=== PATIENT | female | born 1940 | race Caucasian/White ===

== ENCOUNTER 2019-06-25 07:48 | Outpatient (CLI) | payer MEDICARE, SELFPAY ==
[2019-06-25 09:24] LABS: Basophils Percent Auto 0.6 % (0.2-1.2); Eosinophils Absolute Auto 0.1 K/mm3 (0-0.3); Eosinophils Percent Auto 1.2 % (0-4.4); Hematocrit 40.5 % (37.0-47.0); Hemoglobin 13.5 g/dL (12.0-15.0); Immature Granulocyte Absolute 0.04 K/mm3 (0.00-0.031); Immature Granulocyte Percent A 0.6 % (0-0.5); Lymphocytes Absolute Auto 1.92 K/mm3 (0.9-3.2); Lymphocytes Percent Auto 26.6 % (18.3-44.2); Mean Corpuscular HGB Conc 33.3 g/dl (32-36); Mean Corpuscular Hemoglobin 31.4 pg (26-34); Mean Corpuscular Volume 94.2 fl (80-100); Mean Platelet Volume 10.1 fl (7.4-10.4); Monocytes Absolute Auto 0.6 K/mm3 (0.1-0.6); Monocytes Percent Auto 8.3 % (2.6-8.5); Neutrophils Absolute Auto 4.5 K/mm3 (1.3-6.7); Neutrophils Percent Auto 62.7 % (45.5-73.1); Platelet Count Result 304 k/mm3 (150-375); Red Cell Distribution Width 11.8 % (11.5-14.5); White Blood Count 7.2 K/mm3 (4.5-10.0)
[2019-06-25 09:36] LABS: Albumin Level 4.6 g/dL (3.5-5.1)
[2019-06-25 09:37] LABS: Hemoglobin A1C 6.5 % (<5.7); Urine Cotinine NEGATIVE
[2019-06-25 09:38] LABS: Blood Urea Nitrogen 14 mg/dL (7-17); Calcium 9.5 mg/dL (8.4-10.2); Carbon Dioxide 28 mmol/L (22-30); Chloride 88 mmol/L (98-107); Estimated Glomerular Filt Rate > 60; Glucose 125 mg/dL (65-105); Potassium 4.4 mmol/L (3.4-5.0); Sodium 131 mmol/L (137-145)
== END 2019-06-25 07:49 | disposition home or self-care (01) ==
LOC: ANHSURGERY 07:55
PROVIDERS: Anesthesiology; Visit Provider Orthopaedic Surgery
DX: M16.9 Osteoarthritis of hip, unspecified (principal); I10 Essential (primary) hypertension
CPT/HCPCS: 36415; 80048; 80307; 82040; 83036; 85025; 87081

== ENCOUNTER 2019-07-06 00:14 | Day surgery (SDC) | payer MEDICARE, SELFPAY ==
[2019-06-25 08:30] VITALS: BP 152/70; PULSE 60; RESP 20; TEMP 37.1; O2SAT 99; BMI 26.6
[2019-07-06] VITALS (18 sets, daily range): BP systolic 102–152; BP diastolic 35–65; PULSE 65–82; RESP 10–20; TEMP 36.1–36.7; O2SAT 92–99
--- NOTE | ~2019-07-06 | XR_ITS ---
EXAMINATION: XR hip LT min 2V DATE: 07/06/2019 11:33 INDICATION: Left total hip arthroplasty TECHNIQUE: 2 views left hip FINDINGS: There is a left total hip arthroplasty in expected position. Subcutaneous gas with soft ti ssue swelling are consistent with recent surgery. IMPRESSION: 1. Recent left total hip arthroplasty. Reviewed, dictated and finalized at location A.
--- NOTE | ~2019-07-06 | XR_ITS ---
EXAMINATION: XR surgery orthopedic EXAM DATE: 07/06/2019 13:50 INDICATION: Left hip replacement. TECHNIQUE: Fluoroscopy used during XR surgery orthopedic performed by Dr. Juan Kaur MD. The DAP for this procedure was 0. 11 mGym2. FINDINGS: Image demonstrates advanced left hip osteoarthritis, and then another frontal image with f emoral broach, and acetabular component in expected position. Correlate with procedure note. IMPRESSION: Fluoroscopy used during left hip replacement.. Reviewed, dictated and finalized at location A.
--- NOTE | 2019-07-06 06:53 | WPDANESEPPF ---
Anes - Initial Pre Proc Eval Procedure: Operation Date: 07/06/19 07:30 Proposed Procedures p Left Total Hip Arthroplasty, Anterior Approach - Juan Kaur MD Date/Time: 07/06/19 06:53 Surgeon: Juan Kaur MD Pre Op Diagnosis: OA Left Hip Patient Data Age: 78 Gender: F Height: 5 ft 3 in Weight: 68.1 kg Last Vital Signs Temp 37.1 C 06/25/19 08:30 Pulse 60 06/25/19 08:30 Resp 20 06/25/19 08:30 BP 152/70 H 06/25/19 08:30 Pulse Ox 99 06/25/19 08:30 Allergies Allergy/AdvReac Type Severity Reaction Status Date / Time No Known Allergies Allergy Verified 06/25/19 09:34 Home Medications Medication Instructions Recorded Confirmed Type escitalopram oxalate 20 mg tablet 10 mg PO HS 04/14/19 06/25/19 History lisinopril 40 mg tablet 40 mg PO DAILY 04/14/19 06/25/19 History amlodipine 10 mg tablet 10 mg PO DAILY #30 tablet 05/21/19 06/25/19 Rx hydrochlorothiazide 25 mg tablet 25 mg PO DAILY #30 tablet 05/21/19 06/25/19 Rx hydralazine 50 mg tablet 50 mg PO BID #30 tablet 06/01/19 06/25/19 Rx acetaminophen [Tylenol Arthritis 650 mg PO Q12H 06/25/19 06/25/19 History Pain] atenolol 50 mg PO HS 06/25/19 06/25/19 History loratadine [Claritin] 10 mg PO DAILY 06/25/19 06/25/19 History rivaroxaban 10 mg tablet 10 mg PO DAILY #13 tablet MDD 1 06/26/19 Rx tab = 10mg Patient hx anesthesia problems: none Family hx anesthesia problems: none PMFSH Past Medical History Medical History Anxiety Arthritis Bladder tumor Cancer skin HLD (hyperlipidemia) Hypertension 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 JARAD (stress urinary incontinence, female) Urinary problem Surgical History Surgical History History of bilateral tubal ligation History of bladder surgery History of gynecologic surgery History of tonsillectomy and adenoidectomy Family History Family History Mother Family history of bipolar disorder Father Asthma Family history of alcoholism Social History Social History Smoking status: Never smoker Gender identity (if verbalized by the patient): Female 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 Questions were solicited and answers provided to the satisfaction of the patient/family/POA.
[2019-07-06] MEDS: LACTATED RINGERS 1,000 ML 30 ML IV CONT ×2 (07:05→11:22)
--- NOTE | 2019-07-06 07:06 | WPDHPUPDATE1 ---
History and Physical Update Update Date/Time: 07/06/19 07:06 History and Physical has been reviewed, including an updated exam of the patient. There are NO changes in the patient's condition. Risks, benefits, and alternatives have been discussed and questions answered. Patient agrees to proceed with procedure.
[2019-07-06] MEDS: TRANEXAMIC ACID 1,000MG/ISO100 1,000 MG/100 ML BAG 200 MG IVPB (07:08)
[2019-07-06] MEDS: ceFAZolin 2 GM/D5W 50 ML 2 GM/50 ML BAG IVPB (07:34)
[2019-07-06] MEDS: SODIUM CHLORIDE 0.9% IV 50 ML, TRANEXAMIC ACID 1,000 MG TOPICAL (08:25)
--- NOTE | 2019-07-06 10:42 | SUR.OPER ---
EBL: 250ML CELL SAVER: 150ML OF PATIENTS OWN BLOOD GIVEN BACK URINE: 250ML CLEAR AND YELLOW
[2019-07-06] MEDS: ceFAZolin SODIUM 1 GM VIAL IV PUSH (10:48)
--- NOTE | 2019-07-06 11:20 | P.OP_ITS ---
Procedure Note - Detailed Date of procedure: 07/06/19 Pre-op diagnosis: OA Left Hip Post-op diagnosis: same Procedure performed: Left total hip replacement through an anterior approach Description of procedure: The patient was identified, proper side identified, and then taken to the operating room. After general anesthesia induction and intubation, she was then transferred over to the [place] table positioning supine in the usual manner for an anterior hip procedure. Positioning was assessed fluoroscopically after which the left hip and thigh was prepped and draped in the usual sterile fashion. 10 cc of the arthroplasty solution was injected into the subcutaneous tissue over the TFL muscle belly. Longitudinal incision was made over the muscle belly. Subcutaneous tissue was sharply dissected down to the TFL fascia which was incised in line with the fibers the TFL. The TFL was retracted laterally and the rectus femoris medially. The rectus fascia was divided. The branches of the anterior femoral circumflex artery were identified and cauterized allowing for access to the hip capsule. Pericapsular fatty tissue was removed. The capsule was divided in an inverted T-fashion. The neck cut was made one fingerbreadth above the level of the lesser trochanter. Head fragment was removed and the acetabulum cleared of debris. Acetabulum was sequentially reamed under fluoroscopic visualization up to 49 mm. A 50 G7 acetabular cup was inserted under fluoroscopic visualization in approximately 40? of abduction and 15? of anteversion following the patient's anatomy. It was further secured with a single screw and then the liner for the 36 mm head was placed. The femur was then delivered up into the wound with the appropriate releases. The proximal femur was prepared for the size 12 echo reduced profile stem and a trial reduction was undertaken. Overall alignment was assessed fluoroscopically in the AP and lateral views noting it to be satisfactory. Trial components were removed. The wound was irrigated with pulsatile lavage. The real stem was then seated. This construct with a minus six 36 mm head gave excellent episcopalian of leg lengths and stability so the real head was attached to the neck of the femoral component after it had been cleaned and dried. Hip was again reduced and stability assessed, and it was noted to be stable. After final lavage of the wound, the periarticular tissues were injected with an additional 50 cc of the arthroplasty solution. 1 g of tranexamic acid was left in the wound. The capsule was reapproximated with #2 Vicryl suture, the TFL fascia with 0 looped PDS suture, the subcu with two of strata fix in the deeper layers and two of strata fix subcuticular stitch. Tissue adhesive was used for the skin. Sterile dressing was applied. He tolerated the procedure well. He was transferred back to a bed and taken to recovery area in stable condition. There were no known intraoperative complications. Estimated blood loss was 250 cc and 125 cc Cell Saver returned. She received perioperative antibiotics. Anesthesia: GETA Surgeon: Juan Kaur MD Estimated blood loss (mL): 250 (125 mL returned via Cell Saver) Drains: No Packing: No Pathology: none sent Complications: No immediate complications Condition: stable Disposition: PACU
--- NOTE | 2019-07-06 12:15 | SUR.PHASEI ---
1210 sbar faxed floor notified, family updated and room # given
[2019-07-06] MEDS: ONDANSETRON INJ 4 MG/2 ML VIAL IV PUSH ×2 (13:36→14:08)
[2019-07-06 14:08] LABS: Hematocrit 35.6 % (37.0-47.0); Hemoglobin 11.7 g/dL (12.0-15.0)
[2019-07-06] MEDS: SODIUM CHLORIDE 0.9% IV 1,000 ML 125 ML IV CONT ×2 (14:08→23:35)
[2019-07-06] MEDS: DOCUSATE SODIUM 100 MG CAPSULE PO (16:39)
[2019-07-06] MEDS: ESCITALOPRAM OXALATE 10 MG TABLET PO (20:19)
[2019-07-06] MEDS: atenoloL 50 MG TABLET PO (22:11)
--- NOTE | 2019-07-06 22:45 | WPDCN ---
Assessment and Plan Assessment and plan (1) Osteoarthritis of left hip: Qualifiers: Osteoarthritis type: primary Qualified Code(s): M16.12 - Unilateral primary osteoarthritis, left hip Code(s): M16.12 - Unilateral primary osteoarthritis, left hip Status: Acute Assessment and Plan: Wound care and pain control will be deferred to Dr. Kaur. DVT prophylaxis also deferred. Check baseline labs in a.m. (2) Hypertension: Code(s): I10 - Essential (primary) hypertension Status: Acute Assessment and Plan: Blood pressures were reviewed and they have been a bit soft postoperatively. Will hold antihypertensives this evening and continue to monitor closely. (3) Type 2 diabetes mellitus: Code(s): E11.9 - Type 2 diabetes mellitus without complications Status: Acute Assessment and Plan: Hemoglobin A1c was 6.6% October 27, 2018, which is diagnostic of diabetes, diet controlled. Patient has been repeatedly told by her primary care provider that she does not have diabetes, however. Patient is not on any medication for this, and is simply being monitored with dietary changes. Supervising physician for this medical consultation is Dr. Jones Clark. HPI Data of Consult Date/Time: 07/06/19 23:31 Requesting Physician: Juan Kaur MD Primary Care Provider: Anam Bates MD [facility] Consult Narrative Narrative: Piedad Nobles is a 78 year old female whom the hospitalist service has been consulted for postoperative medical management. Her medical history significant for type 2 diabetes mellitus, hypertension, history of low-grade bladder cancer, and osteoarthritis. She has had longstanding pain in her left hip, not amenable to conservative outpatient treatment, and thus she elected for replacement today. Her surgery was performed in 0 general anesthesia with no immediate complications documented. Estimated blood loss was 250 milliliters and 125 milliliters returned via Cell Saver. Postoperatively she has suffered from nausea and did have some vomiting earlier today. Her blood pressures were running a bit soft this evening, and thus she did not get up to the chair or walk. At the time my evaluation, she complains of mild discomfort near the incision site of the left hip. She denies paresthesias, skin color, and temperature changes distal to the surgical site. No fever, chills, sweats, chest pain, or shortness of breath. No lightheadedness or dizziness. Review of Systems Review of Systems: Narrative: Twelve systems were reviewed with pertinent positives and negatives as per HPI. She denies recent cold and flu symptoms. No fever, chills, or sweats. No history of cardiac disease. She had a negative pharmacologic stress test in October 2018. Patient denies ever being told that she had diabetes, in fact has been told she does not have diabetes despite having hemoglobin A1cs of 6.5 and 6.6%. This is diet controlled, and has remained stable over the year. She denies blurry vision, polydipsia, and polyuria. No neuropathy symptoms. No history of venous thromboembolism. Except as documented, all other systems were reviewed and are negative. [facility] Past Medical History Medical History (Updated 07/06/19 @ 23:34 by Florence Arguello PA-C) Anxiety Arthritis Bladder cancer Status post TURBT, reportedly low-grade bladder cancer. History of skin cancer History of stress test Pharmacologic stress test in October [address] segment abnormalities with severe systemic hypertension, ejection fraction > 70%, and normal MPI. 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 Surgical History Surgical History (Updated 07/06/19 @ 23:34 by Florence Arguello PA-C) Hist
[2019-07-07] MEDS: ONDANSETRON INJ 4 MG/2 ML VIAL IV PUSH ×2 (00:40→18:16)
[2019-07-07 02:00] VITALS: BP 132/44; PULSE 70; RESP 16; TEMP 36.9; O2SAT 97
[2019-07-07 06:00] VITALS: BP 128/50; PULSE 75; RESP 16; TEMP 37.2; O2SAT 97
[2019-07-07 06:30] LABS: Basophils Percent Auto 0.2 % (0.2-1.2); Hematocrit 28.4 % (37.0-47.0); Hemoglobin 9.3 g/dL (12.0-15.0); Immature Granulocyte Absolute 0.09 K/mm3 (0.00-0.031); Immature Granulocyte Percent A 0.5 % (0-0.5); Lymphocytes Percent Auto 6.5 % (18.3-44.2); Mean Corpuscular HGB Conc 32.7 g/dl (32-36); Mean Corpuscular Hemoglobin 31.5 pg (26-34); Mean Corpuscular Volume 96.3 fl (80-100); Mean Platelet Volume 10.6 fl (7.4-10.4); Monocytes Absolute Auto 1.3 K/mm3 (0.1-0.6); Monocytes Percent Auto 7.7 % (2.6-8.5); Neutrophils Absolute Auto 14.4 K/mm3 (1.3-6.7); Neutrophils Percent Auto 85.1 % (45.5-73.1); Platelet Count Result 196 k/mm3 (150-375); Red Blood Count 2.95 M/mm3 (4.2-5.4); White Blood Count 16.9 K/mm3 (4.5-10.0)
[2019-07-07 06:39] LABS: Blood Urea Nitrogen 18 mg/dL (7-17); Calcium 8.3 mg/dL (8.4-10.2); Carbon Dioxide 25 mmol/L (22-30); Chloride 94 mmol/L (98-107); Estimated CRCL calculation 66 ml/min; Estimated Glomerular Filt Rate > 60; Glucose 134 mg/dL (65-105); Potassium 4.7 mmol/L (3.4-5.0); Sodium 126 mmol/L (137-145)
--- NOTE | 2019-07-07 07:23 | PM.PNORT ---
Progress Note: A&P Assessment and Plan (1) Osteoarthritis of left hip: Qualifiers: Osteoarthritis type: primary Qualified Code(s): M16.12 - Unilateral primary osteoarthritis, left hip Code(s): M16.12 - Unilateral primary osteoarthritis, left hip Status: Acute Assessment and Plan: 78-year-old female postop day one left total hip replacement. She is doing well enough that she would like to go home. She has had a little bit of nausea today but feels it is manageable. I will send a Zofran prescription home with her along with her other prescriptions. Subjective Subjective Date/Time Seen: 07/07/19 07:23 Post Op day: 1 (Left total hip replacement through an anterior approach) Principal diagnosis: Severe osteoarthritis left hip Interval history: 78-year-old female postop day one left total hip replacement on to an anterior approach. Uneventful overnight. He has a little bit of soreness in her left groin that is manageable with the pain medication. Is wanting to go home today. Currently having some trouble voiding. Review of Systems Constitutional: Constitutional: Denies chills and Denies fever(s) Eyes: Eyes: Reports no additional eye complaints ENT: Reports system reviewed and no additional complaints, except as documented Cardiovascular: Cardiovascular: Denies chest pain and Denies dyspnea on exertion Respiratory: Respiratory: Reports no additional respiratory complaints and Denies dyspnea on exertion Gastrointestinal: Gastrointestinal: Denies abdominal pain and Denies bloating Exam Const: General: cooperative, no acute distress and alert Nutritional Appearance: other Orientation/consciousness: patient oriented x3 Limitations: no limitations HENMT: Head: normal to inspection Ears: hearing grossly normal bilaterally Face and sinus: face symmetric Mouth: Yes moist mucous membranes Teeth and gingiva: fair dentition Eyes: Alignment and Position: alignment normal and position normal Sclera: sclerae normal Neck: Neck: normal visual inspection and nontender Chest: Chest palpation & inspection: normal inspection of the chest Resp: Effort & Inspection: normal respiratory effort and able to speak in complete sentences GI: Inspection: normal to inspection (Nontender, nondistended) Skin: General skin exam: normal color Rashes: no rashes Neuro: General: patient oriented x3 Cognition (Neuro): normal cognition Speech: normal speech Sensory Exam: normal sensation Extrem: General: normal to inspection and other Other: Exam of the left hip wound shows that it is dry. Some swelling noted about the hip very little bruising. Motor function grossly intact left lower extremity. Exam limited secondary to thigh discomfort. Grossly, neurovascular status intact to left lower extremity. Psych: Appearance: grossly normal Mental Status: mental status grossly normal Objective Data Vital Signs Vital Signs: Vital Signs - 24 hr 07/06/19 07:24 07/06/19 11:25 07/06/19 11:40 Temperature 97.9 F 97.9 F Pulse Rate 65 82 74 Respiratory Rate 20 20 10 L Blood Pressure 152/54 H 111/38 L 114/65 Pulse Oximetry 99 93 98 07/06/19 11:55 07/06/19 12:10 07/06/19 12:25 Temperature Pulse Rate 71 70 67 Respiratory Rate 12 18 12 Blood Pressure 122/51 L 116/51 L 113/43 L Pulse Oximetry 95 92 94 07/06/19 12:30 07/06/19 12:45 07/06/19 13:00 Temperature Pulse Rate 68 70 72 Respiratory Rate 12 11 L 14 Blood Pressure 110/46 L 107/43 L 103/45 L Pulse Oximetry 93 93 93 07/06/19 13:15 07/06/19 13:30 07/06/19 13:42 Temperature 97.4 F L Pulse Rate 73 71 74 Respiratory Rate 12 12 16 Blood Pressure 102/59 L 119/47 L 118/40 L Pulse Oximetry 93 93 94 07/06/19 13:57 07/06/19 14:27 07/06/19 15:38 Temperature 97.4 F L 97.6 F 98.0 F Pulse Rate 77 78 82 Respiratory Rate 18 16 18 Blood Pressure 116/40 L 107/35 L 110/50 L Pulse Oximetry 95 94 96 07/06/19 21:50 07/06/19 22:00 07/06/19 22
--- NOTE | 2019-07-07 08:19 | WPDANESPN ---
Anes - Prog Note Post-Op Date/Time: 07/07/19 08:19 Cardiovascular status: normal Respiratory status: normal Airway patency: baseline Mental status: baseline Post-Op hydration status: normal Vital Signs: Last Vital Signs Temp 37.2 C 07/07/19 06:00 Pulse 75 07/07/19 06:00 Resp 16 07/07/19 06:00 BP 128/50 L 07/07/19 06:00 Pulse Ox 97 07/07/19 06:00 I/O: Intake & Output 07/06/19 07/07/19 07/07/19 23:59 07:59 15:59 Intake Total 1290 1667 Output Total 250 600 Balance 1040 1067 Laboratory Tests 07/07/19 05:45 07/07/19 05:44 07/06/19 07/07/19 07/07/19 13:57 05:44 05:45 WBC 16.9 H RBC 2.95 L Hgb 11.7 L 9.3 L Hct 35.6 L 28.4 L MCV 96.3 MCH 31.5 MCHC 32.7 RDW 12.0 Plt Count 196 MPV 10.6 H Immature Gran % (Auto) 0.5 Neut % (Auto) 85.1 H Lymph % (Auto) 6.5 L [place] % (Auto) 7.7 Eos % (Auto) 0.0 Baso % (Auto) 0.2 Lymph # (Auto) 1.10 [place] # (Auto) 1.3 H Eos # (Auto) 0.0 Baso # (Auto) 0.0 Abs Immat Gran (auto) 0.09 H Absolute Neuts (auto) 14.4 H Absolute Nucleated RBC 0.0 Nucleated RBC % 0.0 Sodium 126 L Potassium 4.7 Chloride 94 L Carbon Dioxide 25 BUN 18 H Creatinine 0.50 L Estim Creat Clear Calc 66 Estimated GFR > 60 Glucose 134 H Calcium 8.3 L Post-procedural complaints: none Patient Feedback: Patient satisfied with anesthetic care.
[2019-07-07 10:19] VITALS: BP 131/45; PULSE 78; RESP 18; O2SAT 96
[2019-07-07 10:21] VITALS: BP 142/55
[2019-07-07] MEDS: DOCUSATE SODIUM 100 MG CAPSULE PO ×2 (10:30→18:03)
[2019-07-07] MEDS: AMLODIPINE BESYLATE 5 MG TABLET 10 MG PO (10:30)
[2019-07-07] MEDS: hydrALAZINE HCL 50 MG TABLET PO ×2 (10:31→18:04)
[2019-07-07] MEDS: lisinopriL 20 MG TABLET 40 MG PO (10:31)
[2019-07-07] MEDS: RIVAROXABAN 10 MG TABLET PO (10:32)
[2019-07-07] MEDS: LORATADINE 10 MG TABLET PO (10:32)
--- NOTE | 2019-07-07 12:10 | PC.NURSE ---
Patient refused gel packs stating the packs cause more pain with them laying on the incision.
--- NOTE | 2019-07-07 13:05 | PM.IMPN ---
Progress Note: A&P Assessment and Plan (1) Osteoarthritis of left hip: Qualifiers: Osteoarthritis type: primary Qualified Code(s): M16.12 - Unilateral primary osteoarthritis, left hip Code(s): M16.12 - Unilateral primary osteoarthritis, left hip Status: Acute Assessment and Plan: Patient improving well today; likely home today Wound care, DVT ppx, PT/OT, and pain control will be deferred to Dr. Kaur Patient okay for discharge from Hospitalist standpoint (2) Hypertension: Code(s): I10 - Essential (primary) hypertension Status: Acute Assessment and Plan: BP 140s today; Stable Will continue home BP medications at discharge Instruct to check BP daily at home; call [employer] if BP too soft (3) Type 2 diabetes mellitus: Code(s): E11.9 - Type 2 diabetes mellitus without complications Status: Acute Assessment and Plan: Hemoglobin A1c was 6.6% October 27, 2018, which is diagnostic of diabetes, diet controlled. Patient has been repeatedly told by her primary care provider that she does not have diabetes, however. Patient is not on any medication for this, and is simply being monitored with dietary changes. Follow up with PCP for further management Additional Plan Thank you for allowing the Hospitalist team to care for this patient during their stay. Please call with any questions Subjective Date/time seen: 07/07/19 13:05 This is a Hospitalist Consult Progress Note Interval history: Patient is a 78 yo F with history of type 2 diabetes mellitus, hypertension, history of low-grade bladder cancer, and osteoarthritis who is here for left hip replacement per Dr. Kaur POD 1; Hospitalist service has been consulted for medical management of comorbid conditions. Patient states she is doing okay today. She has been working well with PT/OT. Pain is reasonable today. She is wishing to return home. Denies f/c/ns, headaches, dizziness/lightheadedness particularly when standing, changes in v/h, cp/palpitations, n/v/d/c, abd pain, dysuria, hematuria, cloudy urine, calf pain/swelling, s/sx of stroke. Review of Systems Review of Systems: All systems reviewed & are unremarkable except as noted in HPI and below Exam Narrative: Exam Narrative: Patient lying in semi-sosa's at time of visit. Family is in room at time of visit Const: General: cooperative, comfortable, no acute distress, well developed, alert and awake Nutritional Appearance: well nourished Orientation/consciousness: patient oriented x3 HENMT: Head: normocephalic and atraumatic General nose exam: Normal nares present Face and sinus: face symmetric Mouth: No lip normal (abrasion noted on upper lip) and Yes moist mucous membranes Eyes: General: appearance normal, both eyes and all related structures EOM: EOMs intact bilaterally Neck: Neck: trachea midline and supple Resp: Effort & Inspection: normal respiratory effort Auscultation: clear to auscultation bilaterally Cardio: Rate: regular rate Rhythm: regular rhythm Heart sounds: no murmurs GI: GI Palp: No abdominal tenderness and Yes Soft to palpation Auscultation: normal bowel sounds and normoactive bowel sounds Skin: General skin exam: normal color and no rashes or lesions noted Neuro: General: patient oriented x3 Speech: normal speech Motor exam (neuro): Normal motor muscle tone present throughout Sensory Exam: normal sensation Extrem: Right lower extremity: no edema Left lower extremity: no edema Other: NTTP b/l calves Psych: Mental Status: mental status grossly normal Affect: normal affect Objective Data Vital Signs Vital Signs: Vital Signs - 24 hr 07/06/19 13:15 07/06/19 13:30 07/06/19 13:42 Temperature 97.4 F L Pulse Rate 73 71 74 Respiratory Rate 12 12 16 Blood Pressure 102/59 L 119/47 L 118/40 L Pulse Oximetry
[2019-07-07] MEDS: SODIUM CHLORIDE 0.9% IV 1,000 ML 125 ML IV CONT (13:23)
[2019-07-07 14:00] VITALS: BP 114/38; PULSE 84; RESP 20; TEMP 37.4; O2SAT 92
== END 2019-07-07 20:20 | disposition home or self-care (01) ==
LOC: ANHSURGERY 05:55 → ANH3MEDSUR 13:45
PROVIDERS: Visit Provider Orthopaedic Surgery
PROC: (CPT 27130; principal; 2019-07-06 07:30)
DX: M16.12 Unilateral primary osteoarthritis, left hip (principal); I10 Essential (primary) hypertension; E11.9 Type 2 diabetes mellitus without complications; E78.5 Hyperlipidemia, unspecified; N39.3 Stress incontinence (female) (male); F41.9 Anxiety disorder, unspecified; Z79.01 Long term (current) use of anticoagulants; Z85.51 Personal history of malignant neoplasm of bladder
CPT/HCPCS: 27130; 36415; 73502; 80048; 85014; 85018; 85025; 97110; 97116; 97161; 97165; 97530; A9270; C1776; J0131; J0171; J0690; J1100; J1170; J1885; J2250; J2270; J2405; J2704; J2710; J2795; J3010; J7030; J7120

== ENCOUNTER 2019-11-05 13:53 | Outpatient (CLI) | payer MEDICARE, SELFPAY | END 2019-11-05 13:54 | disposition home or self-care (01) | LOC: ANHLAB 13:55 | PROVIDERS: Visit Provider Internal Medicine Cardiovascular Disease | DX: E78.5 Hyperlipidemia, unspecified (principal) | CPT/HCPCS: 36415 ==

== ENCOUNTER 2020-01-21 09:45 | Outpatient (CLI) | payer MEDICARE, OTHER, SELFPAY ==
[2020-01-21 11:44] LABS: Alanine Aminotransferase 34 U/L (14-59); Albumin Level 4.1 g/dL (3.4-5.0); Alkaline Phosphatase 104 U/L (46-116); Anion Gap 6 mmol/L (8-16); Aspartate Amino Transferase 21 U/L (15-37); Bilirubin,Total 0.4 mg/dL (0.00-1.00); Blood Urea Nitrogen 17 mg/dL (7-18); Carbon Dioxide 30 mmol/L (21-32); Chloride 98 mmol/L (98-108); Cholesterol 235 mg/dL (0-200); Estimated Glomerular Filt Rate > 60; Glucose 123 mg/dL (70-99); HDL Direct 67 mg/dL (40-60); LDL Cholesterol Calculated 150 mg/dL (<130); Magnesium 1.9 mg/dL (1.8-2.4); Osmolality Calculated 280 mOsm/kg (285-295); Potassium 4.3 mmol/L (3.5-5.1); Sodium 134 mmol/L (136-145); Total Protein 7.5 g/dL (6.4-8.2); Triglycerides 92 mg/dL (0-150)
== END 2020-01-21 09:46 | disposition home or self-care (01) ==
LOC: CHSLAB 09:50
PROVIDERS: Visit Provider Internal Medicine Cardiovascular Disease
DX: E78.5 Hyperlipidemia, unspecified (principal)
CPT/HCPCS: 36415; 80053; 80061; 83735

== ENCOUNTER 2024-07-22 12:25 | Outpatient (CLI) | payer MEDICARE, SELFPAY ==
--- NOTE | ~2024-07-22 | US_ITS ---
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 Other specified symptoms and signs. TECHNIQUE: Grayscale, color Doppler, and pulsed Doppler images of the cervical carotid arteries were obtained. The degree of vessel stenosis is placed in one of the following categories: normal, <50%, 5 0-69%, >=70% but less than near-occlusion, near-occlusion, or total occlusion. Note that percent sten osis relative to normal distal artery lumen diameter is indirectly measured from velocity measurement s as described by Kaushal, et al. Radiology 2003; 229:340-346. COMPARISON: None. FINDINGS: RIGHT: The right common carotid artery (CCA) peak systolic velocity (PSV) is 100 cm/s. The right internal ca rotid artery (ICA) PSV is 92 cm/s. The right ICA end-diastolic velocity (EDV) is 26 cm/s. The right I CA/CCA PSV ratio is 0.9. Grayscale and color Doppler images yield an estimate of <50% diameter reduct ion from plaque in the ICA. There is antegrade flow in the right vertebral artery. LEFT: The left CCA PSV is 89 cm/s. The left ICA PSV is 83 cm/s. The left ICA EDV is 14 cm/s. The left ICA/C CA PSV ratio is 0.9. Grayscale and color Doppler images yield an estimate of <50% diameter reduction from plaque in the ICA. There is antegrade flow in the left vertebral artery. IMPRESSION: 1. <50% stenosis in the right internal carotid artery. 2. <50% stenosis in the left internal carotid artery. Reviewed, dictated and finalized at location A.
--- OUTSIDE RECORDS SUMMARY | 2024-07-22 13:30 | XMS_ITS | Data Portability ---
Author Organization [facility], [address] [facility] ([place]) Address [address] [address] Care Team Providers Care Telegraphic Typewriter Installer Name Role Phone CHRISTINA CHAVEZ Primary Care Provider Assessment Encounter Date Assessment Date Assessment LastModified by Organization Details LastModified Time 06/01/2024 06/01/2024 The patient will return in one year for an evaluation of symptoms, for an exam with a urinalysis, and for surveillance cystoscopy. [facility] Not available 06/02/2024 09:39:50 Plan of Treatment Reminders Order Date Submit Date Provider Last Modified By Organization Details Last Modified Time Details Appointments Visua l Field 20.ES T 2024 11:30A M Ophthalmology Not available Not available Not available Estab jason Avelar nt 15.ES T 2024 11:45A M Dr. Abimael Giles Not available Not available Not available Estab jason Avelar nt 15.ES T 2024 12:30P M Dr. Harpal Nam Not available Not available Not available Proce dure 20.NJ O 2025 02:20P M Dr. Wei Palomino Not available Not available Not available Lab cultu re + sensi tivit y, urine 2024 026 [email or web address] [facility], [address] [place] [address], [id number], 06/01/2024 15:19:50 urina lysis , compl ete 2024 026 [email or web address] [facility] [address] [place] [address], [id number], 06/01/2024 15:19:50 Referral None recor ded. Procedures None recor ded. Surgeries None recor ded. Imaging None recor ded. Medication Orders None recor ded. Patient TargetsNo targets recorded. Patient InstructionsNo instructions recorded. Reason for Referral None Reported. Results Created Date Observation Date Name Description Value Unit Range Abnormal Flag Note LastModifiedBy Organization Detail LastModifiedTime 05/25/1905/25/2024 urina lysis , compl ete urinalysis, complete LOW LEVEL S OF HEMOG LOBIN IN ABSEN CE OF HEMAT URIA MAY NOT BE CLINI LON SHERRIEI AMARIS Coates Not Available [facility] [address] [place] [address], [id number], 05/25/2024 19:39:39 05/25/19 25 05/25/2024 urina lysis , compl ete color YELLOW Not Available [facility] [address] [place] [address], [id number], 05/25/2024 19:39:39 05/25/19 25 05/25/2024 urina lysis , compl ete clarity Clear Not Available [facility] [address] [place] [address], [id number], 05/25/2024 19:39:39 05/25/19 25 05/25/2024 urina lysis , compl ete pH 7.5 5.0-7. 5 Not Available [facility] [address] [place] [address], [id number], 05/25/2024 19:39:39 05/25/19 25 05/25/2024 urina lysis , compl ete specific gravity 1.010 1.000- 1.030 Not Available [facility] [address] [place] [address], [id number], 05/25/2024 19:39:39 05/25/19 25 05/25/2024 urina lysis , compl ete blood NEGATI VE negati ve Not Available [facility] [address] [place] [address], [id number], 05/25/2024 19:39:39 05/25/19 25 05/25/2024 urina lysis , compl ete bilirubin NEGATI VE negati ve Not Available [facility] [address] [place] [address], [id number], 05/25/2024 19:39:39 05/25/19 25 05/25/2024 urina lysis , compl ete urobilinogen 0.2 0.2-1. 0 Not Available [facility] [address] [place] [address], [id number], 05/25/2024 19:39:39 05/25/19 25 05/25/2024 urina lysis , compl ete ketone NEGATI VE negati ve Not Available [facility] [address] [place] [address], [id number], 05/25/2024 19:39:39 05/25/19 25 05/25/2024 urina lysis , compl ete glucose NEGATI VE negati ve Not Available [facility] [address] [place] [address], [id number], 05/25/2024 19:39:39 05/25/19 25 05/25/2024 urina lysis , compl ete protein NEGATI VE negati ve Not Available [facility] [address] [place] [address], [id number], 05/25/2024 19:39:39 05/25/19 25 05/25/2024 urina lysis , compl ete nitrite NEGATI VE negati ve Not Available [facility] [address] [place] [address], [id number], 05/25/2024 19:39:39 05/25/19 25 05/25/2024 urina lysis , compl ete leukocytes Trace negati ve abnormal Not Available [facility] [address] [place] [address], [id number], 05/25/2024 19:39:39 05/25/19 25 05/25/2024 urina lysis , compl ete RBC 0-2 0-2/hp f Not Available [facility] [address] [place] [address], [id number], 05/25/2024 19:39:39 05/25/19 25 05/25/2024 urina lysis , compl ete WBC 0-5 0-5/hp f Not Available [facility] [address] [place] [address], [id number], 05/25/2024 19:39:39 05/25/19 25 05/25/2024 urina lysis , compl ete squamous epithelial 0-2 0-10/h pf Not Available [facility] [address] [place] [address], [id number], 05/25/2024 19:39:39 05/25/19 25 05/25/2024 urina lysis , compl ete bacteria NONE SEEN none Not Available [facility] [address] [place] [address], [id number], 05/25/2024 19:39:39 05/25/19 25 05/25/2024 urina lysis , compl ete hyaline cast 0-2 0-2/lp f Not Available [facility] [address] [place] [address], [id number], 05/25/2024 19:39:39 05/25/19 25 05/25/2024 NON-G YN CYTOL OGY ngyn [facility] at[facility] Order ing Provi tory: Nab Manley Name: PIEDAD NOBLES #: [id number] /A ge/Ge nder: 943 (Age: 83) / F Proce dure Date: 2024 SP ECIME N RECEI TOBIN * Urine , voide d Speci men Adequ acy Satis facto ry for evalu ation Cytol ogic Diagn osis Negat olena for high- grade uroth elial carci noma MH EL ECTRO NICAL LY VERIF IED BY FRANCOISE ECHAVARRIA MD 2024 14:13 CL INICA L HISTO RY Histo ry of bladd er cance r GR OSS DESCR IPTIO N 20 mLs of unfix ed, yello w fluid is submi tted for cytol ogic evalu ation . 1 cytoc entri fuge prepa ratio n is evalu ated. END OF REPOR T Not Available [place] [facility] [address] [place] [address], [id number], 05/26/2024 15:14:00 05/25/19 25 05/25/2024 cytol ogy, urine urine cytology * Speci men colle cted and sent out for testi ng by [facility]. Resul ts will flow into the elect ronic recor d and the provi tory will recei ve a 'Revi ew Docum ent' task at that time. Not Available [facility] [address], [id number], 05/25/2024 16:00:46 Result Notes None recorded. Problems Name Problem SNOMED Code Status Onset Date Resolution Date Notes Provider Name and Address Organization Details Recorded Time History of malignant neoplasm [id number] Active 025 Wu Wiley MD [address] [place] [address], [id number] [place] [address] 19:03:19 Problem Notes None recorded. Procedures Surgical History Date Name Laterality Status Provider Name and Address Organization Details Recorded Time Colonoscopy with biopsy completed Not Available Health Note 05/25/2024 20:20:10 Removal of tonsils completed Not Available Health Note 05/25/2024 20:20:10 Total hip arthroplasty completed Not Available Health Note 05/25/2024 20:20:10 Imaging Results None recorded. Procedure Notes None recorded. Medical Equipment None Reported. Allergies Allergen ID Allergen Name Allergen Category Reaction Reaction Severity Criticality Documentation Date Start Date Code Code System Note Provider Name and Address Organization Details Recorded Time 959554 Dyazide medicatio n Not available Not available Not available 05/27/20232006 91845 RxNorm Not Available Not Available Not Available Medications Name Sig Start Date Stop Date Status Note LastModified by Organization Details LastModified Time atenolol 25 mg tablet TAKE 1 TABLET BY MOUTH EVERY DAY active Not Available Not Available No t Available amlodipine 10 mg tablet TAKE 1 TABLET BY MOUTH EVERY DAY active Not Available Not Available No t Available hydrochlorothia zide 25 mg tablet TAKE 1 TABLET BY MOUTH EVERY DAY active Not Available Not Available No t Available losartan 100 mg tablet TAKE 1 TABLET BY MOUTH EVERY DAY active Not Available Not Available No t Available atenolol 50 mg tablet Take 1/2 tablet BY MOUTH EVERY DAY active Not Available Not Available No t Available escitalopram 10 mg tablet TAKE 1 TABLET DAILY active Not Available Not Available No t Available Rocklatan 0.02 %-0.005 % eye drops Instill 1 drop into both eyes every night at bedtime active Not Available Not Available No t Available Vitals Date Recorded Body height Body mass index (BMI) Body weight Systolic blood pressure Diastolic blood pressure Provider Name and Address Organization Details Last Updated DateTime 06/01/2024 160.02 cm 25.9 kg/m2 40449.2 g 150 mm[Hg] 70 mm[Hg] Shaunna [facility] 14:21:18 Social History Question Answer Notes LastModified by Organizat ion Details LastModified Time Tobacco Smoking Status Never Smoker Not Available Health Note 05/25/2024 20:20:10 Do You Have An Advance Directive? Yes [email or web address] Information not available 05/25/2024 What Is Your Level Of Alcohol Consumption? None [email or web address] Information not available 05/25/2024 What Is Your Level Of Caffeine Consumption? Moderate [email or web address] Information not available 05/25/2024 What Is Your Code Status? Other [email or web address] Information not available 05/25/2024 Are You Currently Employed? No [email or web address] Information not available 05/25/2024 What Is Your Occupation? Not Enployed [email or web address] Information not available 05/25/2024 How Many Times Per Week Do You Exercise? 5-7 Times Per Week [email or web address] Information not available 05/25/2024 What Was The Date Of Your Most Recent Tobacco Screening? 06/01/2024 [email or web address] Information not available 05/25/2024 What Is Your Relationship Status? [email or web address] Information not available 05/25/2024 Do You Use Any Illicit Or Recreational Drugs? No [facility]-[email or web address] Information not available 05/25/2024 Sex: Unknown Functional Status Question Answer Note LastModified by Organization D etails LastModified Time What is your exercise level? Moderate [email or web address] Information not available 05/25/2024 Mental Status None recorded. Family History Relationship Description Onset Age of this Age Resolved Age Notes LastModified by Organization Details LastModified Time Mother Hypertensive disorder [email or web address] Not available 2024 20:20:09 Father Hypertensive disorder [email or web address] Not available 2024 20:20:09 Medical History Condition Response Diabetes N Anxiety Disorder N Bleeding Disorder N Attention-deficit Hyperactivity Disorder N High Blood Pressure Y Arthritis N Hyperlipidemia N Cancer Y Thyroid Problems N Stroke N Asthma N COPD N Depression N Anemia N Seizures N Heart Disease N Fibromyalgia N Osteoporosis N Kidney Disease N Gynecological HistoryNo gynecological history recorded. Obstetrics History GPAL:G 0 P 0 0 0 0 Past Encounters Encounter ID Performer Location Encounter Start Date Encounter Closed Date Diagnosis/Indication Diagnosis SNOMED-CT Code Diagnosis ICD10 Code Diagnosis Note [id number] Wu Wiley MD [address] [facility] [address] [place] [address] 06/01/2024 13:53:25 06/01/2024 14:55:21 History of malignant neoplasm 553105594 Z85.51 Health Concerns Section Related Observation LastModified by Organization Detai ls LastModified Time None Recorded Concern Status LastModified by Organization Details LastModified Time None Recorded Advance Directives Directive Y: Payers Encounter Date Sequence Insurance Name Policy Number Policy Ramirez Covered Member ID Ramirez Member ID Guarantor Name 06/01/2024 2 [facility] (MEDICARE REPLACEMENT PFFS) [id number] Piedad Nobles [id number] Hermann Nobles 06/01/2024 1 [place] Piedad Nobles [id number] Hermann Nobles Notes Date Note Type Note Provider Name and Address Organization Details Recorded Time 06/01/2024 text/html The patient is a n 83-year-old woman who underwent transurethral resection of a bladder tumor on November 13, 2013 and the pathology revealed low grade urothelial carcinoma, 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 A smaller lesion in the trigone was resected and the pathology revealed an inverted papilloma. The patient has not had evidence of relapsed bladder cancer since that time. She does not have bothersome urinary complaints. She denies episodes of gross hematuria. Urinalysis on 05/25/2024 showed trace leukocytes but was otherwise normal. Urine cytology on 05/25/2023 was negative for high-grade urothelial carcinoma. The patient is here for surveillance cystoscopy.[facility] Wu Wiley MD [address] [place] [address], [phone], [facility] 06/09/2024 22:04:30 OBGyn Episode No OBEpisode recorded.
--- OUTSIDE RECORDS SUMMARY | 2024-07-22 13:30 | XMS_ITS | Clinical Summary ---
Author Organization [facility] Address [facility] [place] [address] Care Team Providers Care Sales Promotion Director Name Role Phone Hebert GASPAR MD, Anam Bates Primary Care Provid er Allergies Active Allergy Reactions Criticality Noted Date Comments Hydralazine Rash,Itching Low 06/19/2022 Medications amLODIPine (NORVASC) 10 MG tablet Take 10 mg by mouth daily. Active atenolol (TENORMIN) 50 MG tablet Take 25 mg by mouth daily. Active escitalopram (LEXAPRO) 10 MG tablet Take 10 mg by mouth daily. Active hydroCHLOROthiaz jaylin (HYDRODIURIL) 25 MG tablet Take 25 mg by mouth every morning. Active lisinopril (PRINIVIL) 40 MG tablet Take 40 mg by mouth daily. Active cetirizine (ZYRTEC) 10 MG tablet Take 10 mg by mouth daily. 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 Gender Identity Not on file Sexual Orientation Not on file Last Filed Vital Signs Vital Sign Reading Time Taken Comments Blood Pressure 133/65 06/25/2022 2:15 PM DEWATERER OPERATOR Pulse 54 06/25/2022 2:15 PM DEWATERER OPERATOR Temperature 36.2 C (97.2 F) 06/25/2022 11:08 AM DEWATERER OPERATOR Respiratory Rate 18 06/25/2022 2:15 PM DEWATERER OPERATOR Oxygen Saturation 95% 06/25/2022 2:15 PM DEWATERER OPERATOR Inhaled Oxygen Concentration - - Weight 68.9 kg (152 lb 0.1 oz) 06/19/2022 11:56 AM DEWATERER OPERATOR Height 158.8 cm (5' 2.5 ) 06/19/2022 11:56 AM CS T Body Mass Index 27.36 06/19/2022 11:56 AM DEWATERER OPERATOR Plan of Treatment Health Maintenance Due Date Last Done Comments DTaP, Tdap and Td Vaccines ( 1 - Tdap) 1961 Zoster Vaccines (1 of 2) 1992 Annual Medicare Wellness Visit 08/01/2007 Dexa Scan (General) 08/01/2007 Pneumococcal Vaccine: 65+ Years (1 of 1 - PCV) 08/01/2007 RSV Immunization or 60+ Years (1 - 1-dose 75+ series) 2017 COVID-19 Vaccine (3 - 2023-2 5 season) 2023 08/01/2020, 07/02/2020 Influenza Adult (#1) 2024 05/09/2022, 03/09/2020 Meningococcal B Vaccine Aged Out No l onger eligible based on patient's age to complete this topic Meningococcal Vaccine Aged Out No raghu tatyana eligible based on patient's age to complete this topic RSV Immunizations Under 20 Months Aged Out No longer eligible b ased on patient's age to complete this topic Medical Devices Implanted Type Area President [employer] Device Identifier Shelf Expiration Date Model / Serial / Lot Drain Glaucoma Thk.9mm Blunt Taper Ahmed Flexible Plate Silicone [id number] .635mm .305mm Valve Thinner Plate Cannula Aqueous Percolation Hole 25mm - [id number] Implanted:Qty: 1 on 06/25/2022 by Marcus Perera MD at [facility] Eye Left: Eye [employer] na 06/17/2023 7 / [id number] / NA Description:Verified by [place] [address] [address] [place] [address] Advance Directives Documents on File Type Date Recorded Patient Alpine Patroller Expl anation Power of Sales Assistants And Salespersons 06/25/2022 [facility] Care Teams Sales Promotion Director Relationship Specialty Start Date End Date Anam Ambrosio III, MD [address] [address] PCP - General FAMILY PRACTICE 06/22/22
== END 2024-07-22 12:26 | disposition home or self-care (01) ==
LOC: CHSIMG 12:28
PROVIDERS: Visit Provider Internal Medicine Cardiovascular Disease
DX: R09.89 Other specified symptoms and signs involving the circulatory and respiratory systems (principal); I65.23 Occlusion and stenosis of bilateral carotid arteries
CPT/HCPCS: 93880

== ENCOUNTER 2024-08-25 12:38 | Outpatient (CLI) | payer MEDICARE, SELFPAY ==
--- NOTE | 2024-08-25 12:52 | ECHO_ITS ---
Patient Info Name: Piedad Nobles Age: 84 years : 1940 Gender: Female Ht: 63 in Wt: 145 lbs BSA: 1.72 m2 HR: 69 bpm BP: 195 / 76 mmHg Heart Rhythm: Sinus Rhythm Technical Quality: Fair Exam Date: 08/25/2024 12:58 PM Exam Location: Echo Lab Patient Status: Outpatient Admit Date: 08/25/2024 Staff Ordering Physician: Henry Martinez DO Analog Ic Design Engineer: Tahira Montana RDCS Attending Provider: Henry Martinez DO Referring Physician: Juan MORAN; Exam Type: CA echo doppler color flow Study Info Indications - Cardiac murmur Complete two-dimensional, color flow and Doppler transthoracic echocardiogram is performed. Summary 1. Complete two-dimensional, color flow and Doppler transthoracic echocardiogram is performed. 2. Left ventricular chamber dimension is normal. 3. Left ventricular systolic function is normal, estimated at 60-65%. 4. The left ventricular diastolic function is abnormal. 5. E/e' 13 is mildly elevated. 6. Left atrial chamber dimension is mildly enlarged. 7. There is mild mitral valve regurgitation. 8. There is trace tricuspid valve regurgitation. 9. Mild pulmonary hypertension, estimated pulmonary arterial systolic pressure is 43 mmHg. Left Ventricle E/e' 13 is mildly elevated. Left ventricular chamber dimension is normal. Left ventricular systolic function is normal, estimated at 60-65%. The left ventricular diastolic function is abnormal. Right Ventricle Right ventricular systolic function is normal and with normal TAPSE 2.2 cm. Right ventricular chamber dimension is normal. Left Atria Left atrial chamber dimension is mildly enlarged. Right Atria Right atrial chamber dimension is normal. Aortic Valve The aortic valve is trileaflet. There is no aortic valve stenosis. There is no aortic valve regurgitation. Pulmonic Valve There is no pulmonic regurgitation. Mitral Valve There is no mitral valve stenosis. There is mild mitral valve regurgitation. Tricuspid Valve There is trace tricuspid valve regurgitation. Mild pulmonary hypertension, estimated pulmonary arterial systolic pressure is 43 mmHg. Pericardium/Pleural There is no pericardial effusion. Inferior Vena Cava Normal inferior vena cava with >50% collapse upon inspiration consistent with normal right atrial pressure, 5 mmHg. Aorta The aortic root size at the sinus of Valsalva is normal. Left Ventricular Outflow Tract Name Value Normal LVOT 2D LVOT Diameter 2.0 cm LVOT Doppler LVOT Peak Velocity 118 cm/s LVOT Peak Gradient 5 mmHg LVOT Mean Gradient 3 mmHg LVOT VTI 30 cm LVOT VTI/AV VTI Ratio 0.8 LVOT Stroke Volume 91 ml LVOT CO 6.0 l/min LVOT CI 3.5 l/min/m2 Pulmonic Valve Name Value Normal RVOT Doppler RVOT Peak Gradient 1 mmHg PV Doppler PV Peak Velocity 80 cm/s PV Peak Gradient 3 mmHg Mitral Valve Name Value Normal MV Doppler MV Decel [place] 460 cm/s2 MV PHT 70 ms MV Area (PHT) 3.1 cm2 4.0-5.0 MV Diastolic Function MV E Peak Velocity 111 cm/s MV A Peak Velocity 107 cm/s MV E/A 1.0 MV Decel Time 241 ms MV Annular TDI MV Septal e' Velocity 8.1 cm/s >=8.0 MV E/e' (Septal) 13.7 <=8.0 MV Lateral e' Velocity 8.3 cm/s >=10.0 MV E/e' (Lateral) 13.3 <=8.0 MV e' Average 8.20 MV E/e' (Average) 13.5 Tricuspid Valve Name Value Normal TV Regurgitation Doppler TR Peak Velocity 306 cm/s TR Peak Gradient 33 mmHg Estimated PAP/RSVP RA Pressure 5 mmHg <=5 PA Systolic Pressure 43 mmHg <36 RV Systolic Pressure 43 mmHg <36 TV Annular TDI TV Lateral Milli s' Velocity 13.4 cm/s 9.5-18.7 Aortic Valve Name Value Normal AV Doppler AV Peak Velocity 147 cm/s AV Peak Gradient 9 mmHg AV Mean Gradient 5 mmHg AV VTI 37 cm AV Area (Cont Eq VTI) 2.4 cm2 >=3.0 AV Area (Cont Eq Milton) 2.4 cm2 AV V1/V2 Ratio 0.80 AV Regurgitation 2D LVOT Area 3.0 cm2 Ventricles Name Value Normal LV Dimensions 2D/MM IVS Diastolic Thickness (2D) 1.1 cm 0.6-1.0 LVID Diastole (2D) 3.5 cm 3.8-5.2 LVIW Diastolic Thickness (2D) 0.9 cm 0.6-0.9 LVID Systole (2D) 2.4 cm 2.2-3.5 LVOT Diameter 2.0 cm LV Mass (2D Cubed) 106.73 g 67.00-162.00 LV Mass Index (2D Cubed) 62 g/m2 43-95 Relative Wall Thickness (2D) 0.53 LV Fractional Shortening/Ejection Fraction 2D/MM LV Fractional Shortening (2D) 32 % 27-45 LV EF (2D Teicholz) 61 % 54-74 LV Diastolic Volume (4C MOD) 111 ml LV EF (4C MOD) 66 % LV Diastolic Volume (2C MOD) 132 ml LV EF (2C MOD) 61 % LV Diastolic Volume (BP MOD) 123 ml 46-106 LV Diastolic Volume Index (BP MOD) 71 ml/m2 29-61 LV Systolic Volume (BP MOD) 45 ml 14-42 LV Systolic Volume Index (BP MOD) 26 ml/m2 8-24 LV EF (BP MOD) 63 % 54-74 LV Diastolic Length (4C) 7.7 cm LV Systolic Length (4C) 6.4 cm LV Stroke Volume (4C MOD) 73 ml Atria Name Value Normal LA Dimensions LA Volume (4C A-L) 68 ml LA Volume (BP A-L) 66 ml RA Dimensions RA Area (4C) 18.2 cm2 <=18.0 Report Signatures
--- OUTSIDE RECORDS SUMMARY | 2024-08-25 13:49 | XMS_ITS | Clinical Summary ---
Author Organization 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 Gender Identity Not on file Sexual Orientation Not on file Last Filed Vital Signs Vital Sign Reading Time Taken Comments Blood Pressure 133/65 06/25/2022 2:15 PM WOOD CARVING MACHINE OPERATOR Pulse 54 06/25/2022 2:15 PM WOOD CARVING MACHINE OPERATOR Temperature 36.2 C (97.2 F) 06/25/2022 11:08 AM WOOD CARVING MACHINE OPERATOR Respiratory Rate 18 06/25/2022 2:15 PM WOOD CARVING MACHINE OPERATOR Oxygen Saturation 95% 06/25/2022 2:15 PM WOOD CARVING MACHINE OPERATOR Inhaled Oxygen Concentration - - Weight 68.9 kg (152 lb 0.1 oz) 06/19/2022 11:56 AM WOOD CARVING MACHINE OPERATOR Height 158.8 cm (5' 2.5 ) 06/19/2022 11:56 AM CS T Body Mass Index 27.36 06/19/2022 11:56 AM WOOD CARVING MACHINE OPERATOR Plan of Treatment Health Maintenance Due Date Last Done Comments DTaP, Tdap and Td Vaccines ( 1 - Tdap) 1961 Pneumococcal Vaccine: 50+ Years (1 of 1 - PCV) 1992 Zoster Vaccines (1 of 2) 1992 Annual Medicare Wellness Visit 08/01/2007 Dexa Scan (General) 08/01/2007 RSV Immunization or 60+ Years (1 - 1-dose 75+ series) 2017 COVID-19 Vaccine (3 - 2023-2 5 season) 2023 08/01/2020, 07/02/2020 Meningococcal B Vaccine Aged Out No l onger eligible based on patient's age to complete this topic Meningococcal Vaccine Aged Out No raghu tatyana eligible based on patient's age to complete this topic RSV Immunizations Under 20 Months Aged Out No longer eligible b ased on patient's age to complete this topic Medical Devices Implanted Type Area Gas Charger Device Identifier Shelf Expiration Date Model / Serial / Lot Drain Glaucoma Thk.9mm Blunt Taper Ahmed Flexible Plate Silicone [id number] .635mm .305mm Valve Thinner Plate Cannula Aqueous Percolation Hole 25mm - [id number] Implanted:Qty: 1 on 06/25/2022 by Marcus Perera MD at [facility] Eye Left: Eye [employer] na 06/17/2023 7 / [id number] / NA Description:Verified by md Insurance [facility] Advance Directives Documents on File Type Date Recorded Patient Risk Investigator Expl anation Power of Plastic Design Applier 06/25/2022 POA Care Teams Complaint Investigations Officer Relationship Specialty Start Date End Date Anam Ambrosio III, MD [address] [address] PCP - General FAMILY PRACTICE 06/22/22
--- OUTSIDE RECORDS SUMMARY | 2024-08-25 13:49 | XMS_ITS | Data Portability ---
Author Organization [facility], [address] [facility] ([place] Address [address] [address] Care Team Providers Care Digital Computer Systems Analyst Name Role Phone CHRISTINA CHAVEZ Primary Care Provider Assessment Encounter Date Assessment Date Assessment LastModified by Organization Details LastModified Time 06/01/2024 06/01/2024 The patient will return in one year for an evaluation of symptoms, for an exam with a urinalysis, and for surveillance cystoscopy. [facility] Not available 06/02/2024 09:39:50 Plan of Treatment Reminders Order Date Submit Date Provider Last Modified By Organization Details Last Modified Time Details Appointments Estab jason Avelar nt 15.ES T 2024 12:30P M Dr. Harpal Nam Not available Not available Not available Visua l Field 20.ES T 2024 12:30P M Ophthalmology Not available Not available Not available Estab jason Avelar nt 15.ES T 2024 01:15P M Dr. Abimael Giles Not available Not available Not available Proce dure 20.SC O 2025 02:20P M Dr. Wei Palomino Not available Not available Not available Lab cultu re + sensi tivit y, urine 2024 026 [email or web address] [facility], [address] [place] [address], [id number], 06/01/2024 15:19:50 urina lysis , compl ete 2024 026 [email or web address] [facility], [address] [place] [address], [id number], 06/01/2024 15:19:50 Referral None recor ded. Procedures [...] CLINI LON SHERRIEI AMARIS Coates Not Available [facility] [address] [place] [address], [id number], 05/25/2024 19:39:39 05/25/19 25 05/25/2024 urina lysis , compl ete color YELLOW Not Available [facility] [address] [place] [address], [id number], 05/25/2024 19:39:39 05/25/19 25 05/25/2024 urina lysis , compl ete clarity Clear Not Available [facility] [address] [place] [address], [id number], 05/25/2024 19:39:39 05/25/19 25 05/25/2024 urina lysis , compl ete pH 7.5 5.0-7. 5 Not Available [facility] [address] [place] [address], [id number], 05/25/2024 19:39:39 05/25/19 25 05/25/2024 urina lysis , compl ete specific gravity 1.010 1.000- 1.030 Not Available [facility] [address] [place] [address], [id number], 05/25/2024 19:39:39 05/25/19 25 05/25/2024 urina lysis , compl ete blood NEGATI VE negati ve Not Available [facility] [address] [place] [address], [id number], 05/25/2024 19:39:39 05/25/19 25 05/25/2024 urina lysis , compl ete bilirubin NEGATI VE negati ve Not Available [facility] [address] [place] [address], [id number], 05/25/2024 19:39:39 05/25/19 25 05/25/2024 urina lysis , compl ete urobilinogen 0.2 0.2-1. 0 Not Available [facility] [address] [place] [address], [address], 05/25/2024 19:39:39 05/25/19 25 05/25/2024 urina lysis , compl ete ketone NEGATI VE negati ve Not Available [facility] [address] [place] [address], [address], 05/25/2024 19:39:39 05/25/19 25 05/25/2024 urina lysis , compl ete glucose NEGATI VE negati ve Not Available [facility] [address] [place] [address], [address], 05/25/2024 19:39:39 05/25/19 25 05/25/2024 urina lysis , compl ete protein NEGATI VE negati ve Not Available [facility] [address] [place] [address], [address], 05/25/2024 19:39:39 05/25/19 25 05/25/2024 urina lysis , compl ete nitrite NEGATI VE negati ve Not Available [facility] [address] [place] [address], [id number], 05/25/2024 19:39:39 05/25/19 25 05/25/2024 urina lysis , compl ete leukocytes Trace negati ve abnormal Not Available [facility] [address] [place] [address], [id number], 05/25/2024 19:39:39 05/25/19 25 05/25/2024 urina lysis , compl ete RBC 0-2 0-2/hp f Not Available [facility] [address] [place] [address], [address], 05/25/2024 19:39:39 05/25/19 25 05/25/2024 urina lysis , compl ete WBC 0-5 0-5/hp f Not Available [facility] [address] [place] [address], [address], 05/25/2024 19:39:39 05/25/19 25 05/25/2024 urina lysis , compl ete squamous epithelial 0-2 0-10/h pf Not Available [facility] [address] [place] [address], [address], 05/25/2024 19:39:39 05/25/19 25 05/25/2024 urina lysis , compl ete bacteria NONE SEEN none Not Available [facility] [address] [place] [address], [address], 05/25/2024 19:39:39 05/25/19 25 05/25/2024 urina lysis , compl ete hyaline cast 0-2 0-2/lp f Not Available [facility] [address] [place] [address], [id number], 05/25/2024 19:39:39 05/25/19 25 05/25/2024 NON-G YN CYTOL OGY ngyn Perfo rmed at[facility] Order ing Provi tory: Nba Manley Name: PIEDAD NOBLES #: [id number] [...] ated. END OF REPOR T Not Available [facility] [address] [place] [address], [id number], 05/26/2024 15:14:00 05/25/19 25 05/25/2024 cytol ogy, urine urine cytology * Speci men colle cted and sent out for testi ng by [facility]. Resul ts will flow into the elect ronic recor d and the provi tory will recei ve a 'Revi ew Docum ent' task at that time. Not Available [facility] [address], [address], 05/25/2024 16:00:46 Result Notes None recorded. Problems Name Problem SNOMED Code Status Onset Date Resolution Date Notes Provider Name and Address Organization Details Recorded Time History of malignant neoplasm 035006116 Active 025 Wu Wiley MD [address] [place] [address], [phone] [place] [address] 19:03:19 Problem Notes None recorded. Procedures Surgical [...] Name and Address Organization Details Recorded Time 385086 Dyazide medicatio n Not available Not available Not available 05/27/20232006 13949 RxNorm Not Available Not Available Not Available [...] Not Available Not Available No t Available timolol maleate 0.5 % eye drops instill 1 DROP in EACH EYE TWO TIMES A DAY active Not Available Not Available No [...] Instill 1 drop into both eyes every evening active Not Available Not Available No t Available Vitals Date Recorded Body height Body mass index (BMI) Body weight Systolic blood pressure Diastolic blood pressure Provider Name and Address Organization Details Last Updated DateTime 06/01/2024 160.02 cm 25.9 kg/m2 10073.2 g 150 mm[Hg] 70 mm[Hg] [facility] 14:[facility]18 Social History Question Answer Notes LastModified [...] available 05/25/2024 What Is Your Relationship Status? [id number] Information not available 05/25/2024 Do You Use Any Illicit Or Recreational Drugs? No [id number] Information not available 05/25/2024 Sex: Unknown Functional Status Question Answer Note LastModified by Organization D etails LastModified Time What is your exercise level? Moderate [id number] Information not available 05/25/2024 Mental Status None recorded. Family History Relationship Description Onset Age of this Age Resolved Age Notes LastModified by Organization Details LastModified Time Mother Hypertensive disorder [id number] Not available 2024 20:20:09 Father Hypertensive disorder [id number] Not available 2024 20:20:09 Medical History Condition Response Diabetes N Anxiety Disorder N Bleeding Disorder N Attention-deficit Hyperactivity Disorder N High Blood Pressure Y Arthritis N Hyperlipidemia N Cancer Y Stroke N Thyroid Problems N Asthma N Depression N COPD N Anemia N Seizures N Heart Disease N Fibromyalgia N Osteoporosis N Kidney Disease N Gynecological HistoryNo gynecological history recorded. Obstetrics History GPAL:G 0 P 0 0 0 0 Past Encounters Encounter ID Performer Location Encounter Start Date Encounter Closed Date Diagnosis/Indication Diagnosis SNOMED-CT Code Diagnosis ICD10 Code Diagnosis Note [id number] Wu Wiley MD [address] [facility] [address] [place] [address] 06/01/2024 13:53:25 06/01/2024 14:55:21 History of malignant neoplasm 130185119 Z85.51 Health Concerns Section Related Observation LastModified by Organization Detai ls LastModified Time None Recorded Concern Status LastModified by Organization Details LastModified Time None Recorded Advance Directives Directive Y: Payers Encounter Date Sequence Insurance Name Policy Number Policy Ramirez Covered Member ID Ramirez Member ID Guarantor Name 06/01/2024 2 [facility] (MEDICARE REPLACEMENT PFFS) [id number] Piedad Nobles [id number] Hermann Nobles 06/01/2024 1 [place] Piedad Nobles [id number] Hermann Nobles Notes Date Note Type Note Provider Name and Address Organization Details Recorded Time 06/01/2024 text/html The patient is a n 83-year-old woman who underwent transurethral resection of a bladder tumor on November 13, 2013 and the pathology revealed low grade urothelial carcinoma, pathologic stage clinical reviewer. A smaller lesion in the trigone was [...] carcinoma. The patient is here for surveillance cystoscopy.[facility] Wu Wiley MD [address] [place] [address], [phone], [facility] 06/09/2024 22:04:30 OBGyn Episode No OBEpisode recorded.
== END 2024-08-25 12:39 | disposition home or self-care (01) ==
LOC: CHSIMG 12:47
PROVIDERS: Visit Provider Internal Medicine Cardiovascular Disease
DX: R01.1 Cardiac murmur, unspecified (principal); I27.20 Pulmonary hypertension, unspecified; I34.0 Nonrheumatic mitral (valve) insufficiency
CPT/HCPCS: 93306